=== PATIENT | male | born 1990 | race Caucasian/White ===

== ENCOUNTER 2017-04-29 19:07 | Emergency (ER) | payer BC ==
[2017-04-29] MEDS ORDERED: Ibuprofen 800 MG Tab PO ONE (19:58)
[2017-04-29] MEDS ORDERED: Albuterol/Ipratropium 3.0-0.5 MG/3 ML Neb Soln NEB ONE (20:03)
--- NOTE | 2017-04-29 20:05 | EDM.PDOC ---
ED HPI GENERAL MEDICAL PROBLEM - General Chief Complaint: Fever Stated Complaint: FEVER/CHILLS Time Seen by Provider: 04/29/17 19:50 Source of Information: Reports: Patient History Limitations: Reports: No Limitations - History of Present Illness INITIAL COMMENTS - FREE TEXT/NARRATIVE: HISTORY AND PHYSICAL: History of present illness: [Comes to the emergency room complaining of headache, fever, chills for the past 4-1/2-5 days. He has not checked his temperature but feels that it has been high. He has had some dry cough over the past 24 hours. No head congestion or runny nose. Appetite is decreased. No abdominal pain, nausea or vomiting. Is urinating well and normally. Is having normal bowel movements. Denies rashes. No joint or body aches other than his neck in between his shoulder blades. No chest pain shortness of breath or difficulty breathing. No sputum production with coughing. He has been taking Tylenol and ibuprofen on and off for the past several days which provides minimal improvement in his symptoms. He's noticed worse fevers at night. Patient understands that he may be outside the treatment window for Tamiflu but would still like to be tested for influenza A and B. Reports that he is otherwise well. Smokes cigarettes regularly.] Review of systems: As per history of present illness and below otherwise all systems reviewed and negative. Past medical history: As per history of present illness and as reviewed below otherwise noncontributory. Surgical history: As per history of present illness and as reviewed below otherwise noncontributory. Social history: No reported history of drug or alcohol abuse. Family history: As per history of present illness and as reviewed below otherwise noncontributory. Physical exam: HEENT: Atraumatic, normocephalic. TMs are pearly sierra without erythema bilaterally. Moderate scar tissue present bilaterally. Conjunctiva clear. Oral mucous membranes are pink and moist with tonsillar swelling erythema or exudate. Neck supple, no lymphadenopathy. Nares are dry. Lungs: Clear to auscultation, breath sounds equal bilaterally. Lung sounds are coarse, but no crackles are noted. Heart: S1S2, regular rate and rhythm. No murmur gallop click or rub., negative for clicks, rubs, or JVD. Abdomen: Sounds are normoactive throughout. Abdomen soft nondistended nontender. No masses guarding or rebound. Pelvis: Stable nontender. Genitourinary: Deferred. Rectal: Deferred. Extremities: Atraumatic. Neurovascular unremarkable. Neuro: Awake, alert, oriented. Motor and sensory unremarkable throughout. Exam nonfocal. Diagnostics: [Influenza A and B swab] Therapeutics: [DuoNeb, ibuprofen 800 mg] Impression: [Viral syndrome] Plan: [Patient's temperature one hour after ibuprofen is 102.4. Influenza A and B are negative. Patient is notified of this. We discussed that he has a viral illness and this is going to take time to resolve. Encouraged pushing fluids, plenty of rest, [id number] fever reducers. Establish care with a local PCP and follow-up there in 48-72 hours. Strict return precautions are reviewed. He is in agreement with today's plan. All questions are answered and concerns are addressed.] Definitive disposition and diagnosis as appropriate pending reevaluation and review of above. Treatments [employer]ER: Reports: Acetaminophen back of neck area Pain Score (Numeric/FACES): 4 - Related Data Allergies Allergy/AdvReac Type Severity Reaction Status Date / Time morphine Allergy Rash Verified 04/29/17 19:19 Home Meds: Home Meds . [No Known Home Meds] 07/27/13 [History] Past Medical History - Past Health History Medical/Surgical History: Denies Medical/Surgical History Social & Family History - Tobacco Use Years of Tobacco use: 8 Second Hand Smoke Exposure: No - Recreational Drug Use Recreational Drug Use: No ED ROS GENERAL - Review of Systems Review Of Systems: ROS reveals no pertinent complaints other than HPI. ED EXAM, GENERAL - Physical Exam Exam: See Below Course - Vital Signs Last Recorded V/S: Last Vital Signs Temp 103.3 F H 04/29/17 20:39 Pulse 111 H 04/29/17 19:19 Resp 18 04/29/17 19:19 BP 137/72 04/29/17 19:19 Pulse Ox 98 04/29/17 19:19 - Orders/Labs/Meds Orders: Active Orders 24 hr Category Date Time Status RT Aerosol Therapy [RC] ASDIRECTED Care 04/29/17 20:03 Active Meds: Medications Discontinued Medications Generic Name Dose Route Start Last Admin Trade Name Freq PRN Reason Stop Dose Admin Albuterol/Ipratropium 3 ml 03/07/18 20:03 04/29/17 20:16 Duoneb 3.0-0.5 Mg/3 Ml NEB 04/29/17 20:04 3 ml ONETIME ONE Administration Ibuprofen 800 mg 04/29/17 19:58 04/29/17 20:39 Motrin PO 04/29/17 19:59 800 mg ONETIME ONE Administration Departure - Departure Time of Disposition: 21:22 Disposition: Home, Self-Care 01 Condition: Good Clinical Impression: Viral syndrome - Discharge Information Referrals: PCP,None [Primary Care Provider] - Forms: ED Department Discharge Additional Instructions: The following information is given to patients seen in the emergency department who are being discharged to home. This information is to outline your options for follow-up care. We provide all patients seen in our emergency department with a follow-up referral. The need for follow-up, as well as the timing and circumstances, are variable depending upon the specifics of your emergency department visit. If you don't have a primary care physician on staff, we will provide you with a referral. We always advise you to contact your personal physician following an emergency department visit to inform them of the circumstance of the visit and for follow-up with them and/or the need for any referrals to a consulting specialist. The emergency department will also refer you to a specialist when appropriate. This referral assures that you have the opportunity for follow-up care with a specialist. All of these measure are taken in an effort to provide you with optimal care, which includes your follow-up. Under all circumstances we always encourage you to contact your private physician who remains a resource for coordinating your care. When calling for follow-up care, please make the office aware that this follow-up is from your recent emergency room visit. If for any reason you are refused follow-up, please contact the [facility] emergency department at and asked to speak to the emergency department charge nurse. [facility] [address] [place] [id number] Follow-up with a local primary care provider at the clinic listed above in 48- 72 hours. Alternate Tylenol 650 mg every 4-6 hours with ibuprofen 200 mg 3 tablets every 6 hours. Push fluids, get plenty of rest. You may take one of these medications every 3 hours. Return to ER as needed as discussed. - My Orders Last 24 Hours: My Active Orders 04/29/17 20:03 RT Aerosol Therapy [RC] ASDIRECTED - Assessment/Plan Last 24 Hours: My Active Orders 04/29/17 20:03 RT Aerosol Therapy [RC] ASDIRECTED
== END 2017-04-29 21:42 | disposition home or self-care (01) ==
LOC: MW.ED 19:07
DX: B34.9 Viral infection, unspecified (principal); Z88.5 Allergy status to narcotic agent
CPT/HCPCS: 87804; 94640; 99284; A9270; 99283

== ENCOUNTER 2017-05-02 07:00 | Emergency (ER) | payer BC ==
[2017-05-02] MEDS ORDERED: Ondansetron 4 MG Tab.DIS PO ONE (07:41)
--- NOTE | 2017-05-02 07:43 | EDM.PDOC ---
ED HPI GENERAL MEDICAL PROBLEM - General Chief Complaint: General Stated Complaint: FEVER, NAUSEA, VOMITING Time Seen by Provider: 05/02/17 07:04 Source of Information: Reports: Patient History Limitations: Reports: No Limitations - History of Present Illness INITIAL COMMENTS - FREE TEXT/NARRATIVE: History of present illness: []Patient has had 8 days of intermittent fevers to 103. He has had one episode of vomiting and diarrhea and a mild headache with the fever but otherwise has no other focal complaints. He denies any URI symptoms, cough, chest pain, abdominal pain, difficulty urinating, skin lesions or any other sources of infection. Review of systems: As per history of present illness and below otherwise all systems reviewed and negative. Past medical history: As per history of present illness and as reviewed below otherwise noncontributory. Surgical history: As per history of present illness and as reviewed below otherwise noncontributory. Social history: No reported history of drug or alcohol abuse. Family history: As per history of present illness and as reviewed below otherwise noncontributory. Physical exam: General: Well developed, well nourished in NAD HEENT: Atraumatic, normocephalic, pupils reactive, negative for conjunctival pallor or scleral icterus, mucous membranes moist, throat clear, neck supple, nontender, trachea midline. TMs with marked scarring but no signs of infection Lungs: Mild expiratory wheeze to auscultation, no rhonchi, breath sounds equal bilaterally, chest nontender. Heart: S1S2, regular, negative for clicks, rubs, or JVD. Abdomen: Soft, nondistended, no focal tenderness, nontender no rebound or guarding. Negative for masses or hepatosplenomegaly. Negative for costovertebral tenderness. Pelvis: Stable nontender. Genitourinary: Deferred. Rectal: Deferred. Extremities: Atraumatic, negative for cords or calf pain. Neurovascular unremarkable. Neuro: Awake, alert, oriented. Cranial nerves II through XII unremarkable. Cerebellum unremarkable. Motor and sensory unremarkable throughout. Exam nonfocal. Diagnostics: []CBC normal white count, but a low platelet count at this time at 113. Chemistry shows elevated transaminases and alkaline phosphatase, bilirubin normal. Chest x-ray is negative. Blood culture sent and Hepatitis panel sent after these results. Therapeutics: []Zofran given for nausea Impression: []Acute febrile syndrome Plan: []Follow-up with primary care next week or if symptoms worsen Definitive disposition and diagnosis as appropriate pending reevaluation and review of above. - Related Data Allergies Allergy/AdvReac Type Severity Reaction Status Date / Time morphine Allergy Rash Verified 05/02/17 07:17 Home Meds: Home Meds Ondansetron HCl [Zofran] 4 mg PO Q4HR #12 tablet 05/02/17 [Rx] Past Medical History - Past Health History Medical/Surgical History: Denies Medical/Surgical History HEENT History: Reports: None Cardiovascular History: Reports: None Respiratory History: Reports: None Gastrointestinal History: Reports: None Genitourinary History: Reports: None Musculoskeletal History: Reports: None Neurological History: Reports: None Psychiatric History: Reports: None Endocrine/Metabolic History: Reports: None Hematologic History: Reports: None Immunologic History: Reports: None Oncologic (Cancer) History: Reports: None Dermatologic History: Reports: None - Infectious Disease History Infectious Disease History: Reports: Chicken Pox - Past Surgical History HEENT Surgical History: Reports: Oral Surgery GI Surgical History: Reports: Appendectomy Social & Family History - Family History Family Medical History: Noncontributory - Tobacco Use Smoking Status *Q: Current Every Day Smoker Years of Tobacco use: 10 Packs/Tins Daily: 1 Second Hand Smoke Exposure: No - Caffeine Use Caffeine Use: Reports: Energy Drinks, Soda - Recreational Drug Use Recreational Drug Use: No ED ROS GENERAL - Review of Systems Review Of Systems: See Below (See history of present illness) ED EXAM, GENERAL - Physical Exam Exam: See Below (See history of present illness) Course - Vital Signs Last Recorded V/S: Last Vital Signs Temp 98.7 F 05/02/17 07:17 Pulse 108 H 05/02/17 07:17 Resp 18 05/02/17 07:17 BP 123/71 05/02/17 07:17 Pulse Ox 97 05/02/17 07:17 - Orders/Labs/Meds Orders: Active Orders 24 hr Category Date Time Status Chest 2V [CR] Stat Exams 05/02/17 07:27 Ordered CULTURE BLOOD [BC] Stat Lab 05/02/17 07:27 Ordered CULTURE BLOOD [BC] Stat Lab 05/02/17 07:27 Ordered HEPATITIS B SURFACE ANTIGEN [REF] Routine Lab 05/02/17 08:28 Ordered HEPATITIS C AB [REF] Routine Lab 05/02/17 08:27 Ordered Blood Culture x2 Reflex Set [OM.PC] Stat Oth 05/02/17 07:25 Ordered Labs: Laboratory Tests 05/02/17 05/02/17 05/02/17 Range/Units 07:35 07:35 07:45 WBC 5.43 (4.0-11.0) K/uL RBC 4.93 (4.50-5.90) M/uL Hgb 15.5 (13.0-17.0) g/dL Hct 44.7 (38.0-50.0) % MCV 90.7 (80.0-98.0) fL MCH 31.4 (27.0-32.0) pg MCHC 34.7 (31.0-37.0) g/dL RDW Std Deviation 42.7 (28.0-62.0) fl RDW Coeff of Sid 13 (11.0-15.0) % Plt Count 113 L (150-400) K/uL MPV 9.90 (7.40-12.00) fL Neut % (Auto) 78.1 (48.0-80.0) % Lymph % (Auto) 16.4 (16.0-40.0) % Duval % (Auto) 5.3 (0.0-15.0) % Eos % (Auto) 0.0 (0.0-7.0) % Baso % (Auto) 0.2 (0.0-1.5) % Neut # (Auto) 4.2 (1.4-5.7) K/uL Lymph # (Auto) 0.9 (0.6-2.4) K/uL Duval # (Auto) 0.3 (0.0-0.8) K/uL Eos # (Auto) 0.0 (0.0-0.7) K/uL Baso # (Auto) 0.0 (0.0-0.1) K/uL Nucleated RBC % 0.0 /100WBC Nucleated RBCs # 0 K/uL Lactate 1.1 (0.20-2.00) mmol/L Sodium 135 L (136-148) mmol/L Potassium 3.4 L (3.5-5.1) mmol/L Chloride 100 (98-107) mmol/L Carbon Dioxide 21.3 (21.0-32.0) mmol/L BUN 11 (7.0-18.0) mg/dL Creatinine 1.0 (0.8-1.3) mg/dL Est Cr Clr Drug Dosing 121.79 mL/min Estimated GFR (MDRD) > 60.0 ml/min Glucose 104 (74-106) mg/dL Calcium 8.7 (8.5-10.1) mg/dL Total Bilirubin 0.6 (0.2-1.0) mg/dL AST 118 H (15-37) IU/L ALT 148 H (14-63) IU/L Alkaline Phosphatase 131 H (46-116) U/L Total Protein 7.4 (6.4-8.2) g/dL Albumin 3.5 (3.4-5.0) g/dL Globulin 3.9 H (2.0-3.5) g/dL Albumin/Globulin Ratio 0.9 L (1.3-2.8) Meds: Medications Discontinued Medications Generic Name Dose Route Start Last Admin Trade Name Bernardq PRN Reason Stop Dose Admin Ondansetron HCl 4 mg 05/02/17 07:41 05/02/17 08:10 Zofran Odt PO 05/02/17 07:42 4 mg ONETIME ONE Administration Departure - Departure Time of Disposition: 08:31 Disposition: Home, Self-Care 01 Condition: Good Clinical Impression: Elevated transaminase level, Thrombocytopenia - Discharge Information Prescriptions: Ondansetron HCl [Zofran] 4 mg PO Q4HR #12 tablet Referrals: PCP,None [Primary Care Provider] - Quique Capone MD [Resident] - Forms: ED Department Discharge Additional Instructions: The following information is given to patients seen in the emergency department who are being discharged to home. This information is to outline your options for follow-up care. We provide all patients seen in our emergency department with a follow-up referral. The need for follow-up, as well as the timing and circumstances, are variable depending upon the specifics of your emergency department visit. If you don't have a primary care physician on staff, we will provide you with a referral. We always advise you to contact your personal physician following an emergency department visit to inform them of the circumstance of the visit and for follow-up with them and/or the need for any referrals to a consulting specialist. The emergency department will also refer you to a specialist when appropriate. This referral assures that you have the opportunity for follow-up care with a specialist. All of these measure are taken in an effort to provide you with optimal care, which includes your follow-up. Under all circumstances we always encourage you to contact your private physician who remains a resource for coordinating your care. When calling for follow-up care, please make the office aware that this follow-up is from your recent emergency room visit. If for any reason you are refused follow-up, please contact the [facility] Emergency Department at and asked to speak to the emergency department charge nurseTamika Field for nausea [facility] Primary [facility] [address] [place] [address] - My Orders Last 24 Hours: My Active Orders 05/02/17 07:25 Blood Culture x2 Reflex Set [OM.PC] Stat 05/02/17 07:27 Chest 2V [CR] Stat CULTURE BLOOD [BC] Stat CULTURE BLOOD [BC] Stat 05/02/17 08:27 HEPATITIS C AB [REF] Routine 05/02/17 08:28 HEPATITIS B SURFACE ANTIGEN [REF] Routine - Assessment/Plan Last 24 Hours: My Active Orders 05/02/17 07:25 Blood Culture x2 Reflex Set [OM.PC] Stat 05/02/17 07:27 Chest 2V [CR] Stat CULTURE BLOOD [BC] Stat CULTURE BLOOD [BC] Stat 05/02/17 08:27 HEPATITIS C AB [REF] Routine 05/02/17 08:28 HEPATITIS B SURFACE ANTIGEN [REF] Routine
[2017-05-02 08:22] LABS: CHLORIDE,CL 100 mmol/L (98-107); SODIUM,NA 135 mmol/L (136-148)
--- NOTE | 2017-05-04 11:03 | CR ---
EXAM DATE: 05/02/17 PATIENT'S AGE: 27 Patient: MIRIAM ALVARADO Facility: [place], [place] Site . Site : 1990 Study: XRay Chest [id number]/10/2018 7:52:34 AM Ordering Physician: Junior Cross Final Report: INDICATION: Pain, shortness breath, cough, fever, and vomiting. TECHNIQUE: PA and lateral chest x-ray. FINDINGS: Heart size normal. Lungs clear without infiltrate. Chest otherwise negative without acute disease. Please note the lowermost chest is not entirely included on the PA film including the costophrenic angles bilaterally. Dictated by Jefferson Leon MD @ May 02 2017 7:56AM (Electronic Signature) Report Signed by Proxy. VERONA
== END 2017-05-02 08:52 | disposition home or self-care (01) ==
LOC: MW.ED 07:00
DX: R11.2 Nausea with vomiting, unspecified (principal); R50.9 Fever, unspecified; R79.89 Other specified abnormal findings of blood chemistry; D69.6 Thrombocytopenia, unspecified; F17.210 Nicotine dependence, cigarettes, uncomplicated; Z88.5 Allergy status to narcotic agent; Z90.49 Acquired absence of other specified parts of digestive tract
CPT/HCPCS: 36415; 71046; 80053; 83605; 85025; 86803; 87040; 87340; 99283; A9270